=== PATIENT | male | born 1995 | race American Indian/Alaskan Native ===

== ENCOUNTER 2019-06-10 23:34 | Emergency (ER) | payer SELFPAY ==
[2019-06-10 23:56] VITALS: BP 119/75
--- NOTE | 2019-06-11 00:28 | XRay Report ---
CHEST 2 VIEWS INDICATION / CLINICAL INFORMATION: chestpain. COMPARISON: None available. FINDINGS: SUPPORT DEVICES: None. HEART / MEDIASTINUM: No significant abnormality. LUNGS / PLEURA: No significant pulmonary or pleural abnormality. No pneumothorax. ADDITIONAL FINDINGS: Mild thoracolumbar scoliosis IMPRESSION: Mild thoracolumbar scoliosis. No acute pulmonary or pleural abnormality. Signer Name: Linus Cooper MD FACR Signed: 06/11/2019 12:23 AM Workstation Name: [id number]
[2019-06-11 01:04] LABS: Basophils % (Auto) 0.4 % (0.0-1.8); Eosinophils # (Auto) 0.1 K/mm3 (0.0-0.4); Eosinophils % (Auto) 1.2 % (0.0-4.3); Hematocrit 42.6 % (35.5-45.6); Hemoglobin 14.1 gm/dl (11.8-15.2); Lymphocytes # (Auto) 2.8 K/mm3 (1.2-5.4); Lymphocytes % (Auto) 39.3 % (13.4-35.0); Mean Corpuscular HGB Conc 33 % (32-34); Mean Corpuscular Volume 84 fl (84-94); Monocytes # (Auto) 0.7 K/mm3 (0.0-0.8); Monocytes % (Auto) 9.3 % (0.0-7.3); Platelet Count 188 K/mm3 (140-440); Red Cell Distribution Width 14.7 % (13.2-15.2)
[2019-06-11 01:30] LABS: Alanine Aminotransferase 14 units/L (7-56); Albumin 4.5 g/dL (3.9-5); BUN/Creatinine Ratio 10; Blood Urea Nitrogen 11 mg/dL (9-20); Calcium 9.4 mg/dL (8.4-10.2); Hemolysis Index 5
--- NOTE | 2019-06-11 04:36 | Emergency Department Report ---
ED General Adult HPI - General Chief complaint: Abdominal Pain Stated complaint: CHEST PAIN/STOMACH/HEADACHE Time Seen by Provider: 06/11/19 01:51 Source: patient Mode of arrival: Ambulatory Limitations: No Limitations - History of Present Illness Initial comments: 23-year-old -[place] male post emergency department complaining of pain to the chest, worsens with range of motion and deep breath and coughing. Pain is sharp and does appear to radiate across the back at times as well. Reports no hemoptysis, hematemesis, no hematochezia. No fever, chills, sweats. No odynophagia or or or dysphagia. No trauma -: month(s) (off-and-on for 2 months) Location: chest Severity scale (0 -10): 3 Quality: aching, sharp Consistency: intermittent Improves with: none Associated Symptoms: denies: chest pain, diaphoresis, loss of appetite, malaise, nausea/vomiting, rash, shortness of breath, syncope, weakness - Related Data Previous Rx's Medication Instructions Recorded Last Taken Type Cyclobenzaprine HCl [Flexeril 5mg] 5 mg PO TID #30 tablet 04/05/15 Unknown Rx HYDROcodone/APAP 5-325 [[place] 1 each PO Q6HR PRN #30 tablet 04/05/15 Unknown Rx 5/325] Ketorolac [Toradol] 10 mg PO Q6H PRN #15 tablet 06/11/19 Unknown Rx Allergies Allergy/AdvReac Type Severity Reaction Status Date / Time No Known Allergies Allergy Unverified 04/05/15 19:57 ED Review of Systems ROS: Stated complaint: CHEST PAIN/STOMACH/HEADACHE Other details as noted in HPI Comment: All other systems reviewed and negative ED Past Medical Hx - Past Medical History Previous Medical History?: Yes Additional medical history: Bronchitis - Surgical History Past Surgical History?: No - Social History Smoking Status: Current Every Day Smoker Substance Use Type: None - Medications Home Medications: Home Medications Medication Instructions Recorded Confirmed Last Taken Type Cyclobenzaprine HCl [Flexeril 5mg] 5 mg PO TID #30 tablet 04/05/15 Unknown Rx HYDROcodone/APAP 5-325 [[place] 1 each PO Q6HR PRN #30 tablet 04/05/15 Unknown Rx 5/325] Ketorolac [Toradol] 10 mg PO Q6H PRN #15 tablet 06/11/19 Unknown Rx ED Physical Exam - General Limitations: No Limitations General appearance: alert, in no apparent distress - Head Head exam: Present: atraumatic, normocephalic - Eye Eye exam: Present: normal appearance, PERRL, EOMI Pupils: Present: normal accommodation - ENT ENT exam: Present: normal exam, mucous membranes moist - Neck Neck exam: Present: normal inspection - Respiratory Respiratory exam: Present: normal lung sounds bilaterally, chest wall tenderness (is discomfort with palpation. Range of motion of upper extremities). Absent: respiratory distress, wheezes, rales, rhonchi, accessory muscle use, decreased breath sounds - Cardiovascular Cardiovascular Exam: Present: regular rate, normal rhythm. Absent: systolic murmur, diastolic murmur, rubs, gallop - GI/Abdominal GI/Abdominal exam: Present: soft, normal bowel sounds - Rectal Rectal exam: Present: deferred - Extremities Exam Extremities exam: Present: normal inspection - Back Exam Back exam: Present: normal inspection. Absent: CVA tenderness (R), CVA tenderness (L), paraspinal tenderness - Neurological Exam Neurological exam: Present: alert, oriented X3, CN II-XII intact, normal gait - Psychiatric Psychiatric exam: Present: normal affect, normal mood - Skin Skin exam: Present: warm, dry, intact, normal color. Absent: rash ED Course Vital Signs 06/10/19 23:52 Temperature 97.8 F Pulse Rate 86 Respiratory 18 Rate Blood Pressure 119/75 O2 Sat by Pulse 98 Oximetry ED Medical Decision Making - Lab Data Result diagrams: 06/11/19 00:07 06/11/19 00:13 - EKG Data EKG shows normal: sinus rhythm Rate: normal - EKG Data Interpretation: no acute changes, normal EKG - Radiology Data Radiology results: report reviewed (chest x-ray shows no acute processes) - Medical Decision Making [id number] [place] male with reproducible chest pain associated with range of motion and coughing been present off and on for blood for one to 2 months. They are likely that this is of a coronary origin. Chest x-ray is normal. Chest: There is tactile pain. He states Critical care attestation.: If time is entered above; I have spent that time in minutes in the direct care of this critically ill patient, excluding procedure time. ED Disposition Clinical Impression: Chest pain Disposition: DC-01 TO HOME OR SELFCARE Is pt being admited?: No Does the pt Need Aspirin: No Condition: Stable Instructions: Chest Pain (ED), Costochondritis (ED), Musculoskeletal Pain (ED) Prescriptions: Ketorolac [Toradol] 10 mg PO Q6H PRN #15 tablet PRN Reason: Pain Referrals: CHARLY MARTINEZMEQUON MD [facility] [Primary Care Provider] - 3-[address] [facility] [Provider Group] - 3-5 Days FAUSTINO CANO MD [Staff Physician] - 3-5 Days
== END 2019-06-11 05:20 | disposition home or self-care (01) ==
LOC: ED 23:34
DX: R07.89 Other chest pain (principal); F17.200 Nicotine dependence, unspecified, uncomplicated; Z79.899 Other long term (current) drug therapy
CPT/HCPCS: 36415; 71046; 80053; 83690; 85025; 93005; 93010

== ENCOUNTER 2022-06-04 10:40 | Emergency (ER) | payer SELFPAY | END 2022-06-04 12:40 | disposition left against medical advice (07) | LOC: ED 10:40 | DX: R07.9 Chest pain, unspecified (principal); Z53.21 Procedure and treatment not carried out due to patient leaving prior to being seen by health care provider ==